=== PATIENT | male | born 1955 | race Caucasian/White ===

== ENCOUNTER 2017-02-19 08:21 | Emergency (ER) | payer MEDICARE, OTHER ==
[~2017-02-19] VITALS: Ht 175.3 cm; Wt 130.8 kg
[2017-02-19] MEDS ORDERED: DIOVAN HCT PO (08:33)
[2017-02-19] MEDS ORDERED: ADULT ASPIRIN E81 MG PO (08:34)
[2017-02-19] MEDS ORDERED: VITAMIN D32000 UNIT PO (08:34)
[2017-02-19] MEDS ORDERED: CITRACAL PO (08:35)
[2017-02-19] MEDS ORDERED: MULTIVITAMIN PO (08:35)
[2017-02-19] MEDS ORDERED: [UNRECOGNIZED DRUG - OTHER] PO (08:35)
[2017-02-19] MEDS ORDERED: LORTAB 5-325 MG1 TAB PO (08:51)
[2017-02-19] MEDS ORDERED: FLEXERIL PO (08:51)
[2017-02-19] MEDS ORDERED: EC-NAPROSYN500 MG PO (08:51)
[2017-02-19 09:31] VITALS: BP 150/85
== END 2017-02-19 09:47 | disposition home or self-care (01) ==
LOC: ED 08:21
DX: M43.6 Torticollis (principal)

== ENCOUNTER 2023-11-16 14:28 | Inpatient (IN) | payer MEDICARE, BC, OTHER ==
[~2023-11-16] VITALS: Ht 175.3 cm; Wt 122.0 kg
[~2023-11-16 14:28] MED LIST: ADULT ASPIRIN E81 MG PO; CITRACAL PO; DIOVAN HCT PO; EC-NAPROSYN500 MG PO; FLEXERIL PO; LORTAB 5-325 MG1 TAB PO; MULTIVITAMIN PO; VITAMIN D32000 UNIT PO; [UNRECOGNIZED DRUG - OTHER] PO
[2023-11-16 15:05] LABS: BASO% 0.6 % (0-3); EOS% 4.2 % (0-8); HEMATOCRIT 41.5 % (39.0-50.0); HEMOGLOBIN 13.7 g/dl (14.0-18.0); IMMATURE GRANULOCYTES 0.3 % (0.0-5.0); LYMPH% 27.8 % (15-41); MEAN CELL VOLUME 89.4 fL CALC (80.0-100.0); MEAN CORPUSCULAR HGB 29.5 pG CALC (26.0-32.0); NEUT# 5.51 thou/uL (1.82-7.42); NEUT% 59.1 % (42-76); RED BLOOD COUNT 4.64 mill/uL (4.70-6.10); RED CELL DISTRI WIDTH 12.9 % (11.5-15.5)
[2023-11-16] MEDS ORDERED: HYDROCHLOROT12.5 M1 PO (15:17)
[2023-11-16] MEDS ORDERED: JARDIANCE25 MG (15:18)
[2023-11-16] MEDS ORDERED: OLMESARTAN MEDO20 MG PO (15:18)
[2023-11-16] MEDS ORDERED: BAYER ASPIRIN E81 MG PO (15:19)
[2023-11-16 15:20] LABS: ALBUMIN 4.2 g/dL (3.2-5.0); ALKALINE PHOSPHATASE 81 u/l (38-126); ANION GAP 14 (6-22 (CALC)); BILIRUBIN, TOTAL 0.5 mg/dL (0.2-1.3); BUN 18 mg/dL (8-23); BUN/CREATININE RATIO 16 (12-20 (CALC)); CALCULATED LDLCHOLESTEROL 133 mg/dL (62-129 (CALC)); CARBON DIOXIDE 25 mmol/l (22-30); CHLORIDE 103 mmol/l (95-108); CHOLESTEROL HDL RATIO 5.9 (<4.4 (CALC)); CREATININE 1.2 mg/dL (0.7-1.3); GFR FOR AFR.AMER. > 60 ML/MIN (>=60 (CALC)); GFR OTHER RACES 60 ML/MIN (>=60 (CALC)); HDL CHOLESTEROL 37 mg/dL (39.0-59.0); POTASSIUM 4.2 mmol/l (3.5-5.1); SGOT/AST 34 u/l (19-48); SODIUM 138 mmol/l (137-146); TOTAL CHOLESTEROL 218 mg/dl (0-199); TOTAL PROTEIN 7.3 g/dL (6.3-8.2); TOTAL TRIGLYCERIDES 244 mg/dl (0-149); VLDL CHOLESTROL 49 mg/dl (4-45 (CALC))
[2023-11-16] MEDS ORDERED: METFORMIN HCL1000 MG PO (15:20)
[2023-11-16 15:21] LABS: PROTHROMBIN TIME 9.5 SECONDS (9.0-12.5)
[2023-11-16 16:30] VITALS: BP 138/87
[2023-11-16 17:00] VITALS: BP 135/79
[2023-11-16 17:59] VITALS: BP 135/77
[2023-11-16 19:02] VITALS: BP 102/43
[2023-11-17] VITALS (11 sets, daily range): BP systolic 107–131; BP diastolic 65–78
[2023-11-17 06:02] LABS: URINE BILIRUBIN - DIPSTICK Negative (NEGATIVE); URINE BLOOD DIPSTICK Negative (NEGATIVE); URINE GLUCOSE - DIPSTICK 500 mg/dL (NEGATIVE); URINE KETONE Negative (NEGATIVE); URINE LEUK ESTERASE Negative (NEGATIVE); URINE NITRITE - DIPSTICK Negative (Negative); URINE PH 5.5 (4.5-8.0); URINE PROTEIN - DIPSTICK Negative (NEG-TRACE); URINE SPECIFIC GRAVITY 1.015; URINE UROBILINOGEN - DIPSTICK 0.2 E.U./dL (0.2)
[2023-11-17 06:08] LABS: URINE COLOR Yellow
[2023-11-17 09:25] LABS: BASO% 0.5 % (0-3); EOS% 2.7 % (0-8); HEMATOCRIT 40.6 % (39.0-50.0); HEMOGLOBIN 13.6 g/dl (14.0-18.0); IMMATURE GRANULOCYTES 0.6 % (0.0-5.0); MEAN CORPUSCULAR HGB 29.8 pG CALC (26.0-32.0); MEAN CORPUSCULAR HGB CONC 33.5 g/dL CAL (32.0-36.0); MONO% 7.1 % (2-13); NEUT# 5.66 thou/uL (1.82-7.42); NEUT% 67.1 % (42-76); RED BLOOD COUNT 4.56 mill/uL (4.70-6.10); RED CELL DISTRI WIDTH 12.9 % (11.5-15.5)
[2023-11-17 09:57] LABS: ANION GAP 12 (6-22 (CALC)); BUN 19 mg/dL (8-23); BUN/CREATININE RATIO 16 (12-20 (CALC)); CARBON DIOXIDE 26 mmol/l (22-30); CHLORIDE 101 mmol/l (95-108); CREATININE 1.2 mg/dL (0.7-1.3); GFR FOR AFR.AMER. > 60 ML/MIN (>=60 (CALC)); GFR OTHER RACES 60 ML/MIN (>=60 (CALC)); POTASSIUM 4.3 mmol/l (3.5-5.1); SODIUM 134 mmol/l (137-146)
[2023-11-18 04:12] VITALS: BP 117/70
[2023-11-18 05:52] LABS: BASO% 0.6 % (0-3); EOS% 3.5 % (0-8); HEMATOCRIT 39.5 % (39.0-50.0); HEMOGLOBIN 13.4 g/dl (14.0-18.0); IMMATURE GRANULOCYTES 0.4 % (0.0-5.0); LYMPH% 27.5 % (15-41); MEAN CELL VOLUME 88.8 fL CALC (80.0-100.0); MEAN CORPUSCULAR HGB 30.1 pG CALC (26.0-32.0); MEAN CORPUSCULAR HGB CONC 33.9 g/dL CAL (32.0-36.0); MONO% 9.9 % (2-13); NEUT# 4.98 thou/uL (1.82-7.42); NEUT% 58.1 % (42-76); RED BLOOD COUNT 4.45 mill/uL (4.70-6.10); RED CELL DISTRI WIDTH 12.8 % (11.5-15.5)
[2023-11-18 06:08] LABS: ALBUMIN 3.8 g/dL (3.2-5.0); ALKALINE PHOSPHATASE 69 u/l (38-126); ANION GAP 12 (6-22 (CALC)); BILIRUBIN, TOTAL 0.6 mg/dL (0.2-1.3); BUN 21 mg/dL (8-23); BUN/CREATININE RATIO 17 (12-20 (CALC)); CARBON DIOXIDE 26 mmol/l (22-30); CHLORIDE 103 mmol/l (95-108); CREATININE 1.2 mg/dL (0.7-1.3); GFR FOR AFR.AMER. > 60 ML/MIN (>=60 (CALC)); GFR OTHER RACES 60 ML/MIN (>=60 (CALC)); MAGNESIUM 2.2 mg/dL (1.6-2.3); POTASSIUM 4.2 mmol/l (3.5-5.1); SGOT/AST 24 u/l (19-48); SODIUM 136 mmol/l (137-146); TOTAL PROTEIN 6.7 g/dL (6.3-8.2)
[2023-11-18 07:07] VITALS: BP 126/73
[2023-11-18 11:22] VITALS: BP 127/72
[2023-11-18] MEDS ORDERED: PLAVIX75 MG PO (12:37)
[2023-11-18] MEDS ORDERED: ATORVASTATIN CA40 MG PO (12:38)
== END 2023-11-18 14:17 | disposition home or self-care (01) | DRG 69 ==
LOC: ED 14:28 → ED-I 16:03 → ED 16:20 → MS2 16:21
PROVIDERS: Emergency Medicine; Nurse Practitioner Family; ADMIT Student in an Organized Health Care Education/Training Program; ATTEND Student in an Organized Health Care Education/Training Program
DX: G45.9 Transient cerebral ischemic attack, unspecified (principal); I10 Essential (primary) hypertension; E11.9 Type 2 diabetes mellitus without complications; E78.5 Hyperlipidemia, unspecified; Z79.82 Long term (current) use of aspirin; Z79.84 Long term (current) use of oral hypoglycemic drugs